=== PATIENT | male | born 1945 | race Caucasian/White ===

== ENCOUNTER 2017-02-17 07:59 | Emergency (ER) | payer OTHER ==
[2017-02-17 08:08] VITALS: BMI 21.9
[2017-02-17 08:12] VITALS: TEMP 97.5
[2017-02-17] MEDS ORDERED: Sodium Chloride 0.9% 1,000 ML IV STA (09:39)
[2017-02-17 09:53] LABS: ADD MANUAL DIFF? NO
[2017-02-17 10:02] LABS: BASO # 0.02 K/mm3 (0.0-2.0); BASO % 0.2 % (0.0-3.0); EOS # 0.4 (0.0-0.7); EOS % 4.3 % (1.5-5.0); GRAN # 6.69 (1.4-6.5); HEMATOCRIT 36.4 % (42.0-52.0); LYMPH # 1.6 (1.2-3.4); LYMPH % 17.2 % (22.0-35.0); MEAN CELL VOLUME 87.9 fL (80.0-105.0); MEAN CORPUSCULAR HGB CONC 34.1 g/dl (31.0-37.0); MEAN PLATELET VOLUME 9.3 fl (7.0-11.0); MONO # 0.6 (0.1-0.6); MONO % 6.3 % (1.0-6.0); PLATELET COUNT 246 10^3/uL (120.0-450.0); RED CELL DISTRIBUTION WIDTH 13.1 % (11.5-14.5); WHITE BLOOD COUNT 9.3 10^3/ul (4.5-11.0)
--- NOTE | 2017-02-17 10:03 | ED PDOC ---
Arrival/HPI <Lobo Arteaga - Last Filed: 02/17/17 10:22> - General Historian: Patient, Family - History of Present Illness Symptom Onset: Sudden Symptom Course: Improving <Paulo,Teetee - Last Filed: 02/17/17 12:21> - General Chief Complaint: Dizziness/Lightheaded Time Seen by Provider: 02/17/17 08:31 - History of Present Illness Narrative History of Present Illness (Text): 02/17/17 09:53 CC: Dizziness/ Headache 71 M with PMHx of HTN, HLD, and BPH presented to [facility] ED with complaints of headache/dizziness. Pt reports the symptoms began this morning at 2 am when he woke up to use the restroom. Pt drank tea at this time and ate a biscuit and returned to bed. Pt then awoke at 6am and again felt dizzy with an associated headache and wanted to use the restroom, however was unable to on account of feeling weak and unsteady to walk to the restroom. He called his family to assist him, and as per family, the patient cannot recall the period of time just after using the restroom. Pt also has complaints of associated headache localized to the posterior of the head, which has since resolved. Pt was recently started on new medication a week ago (02/11/17) for HTN. He denies missing a dose. He denied fever, chills, headache, sob, chest pains, palpitations, abdominal pains, n/v/d/c or urinary symptoms. Pt is moving bowel and bladder regularly. PMHx: HTN, HLD, BPH PSHx: none SHx: lives with family, denied tobacco/etoh/illicit drug abuse FamHx: ?hld Allergies: NKDA Meds: Norvasc 10mg daily, flowmax PMD: none (Teetee Bates) Past Medical History - Cardiac Hx Cardiac Disorders: Yes Hx Hypertension: Yes - Pulmonary Hx Respiratory Disorders: No - Neurological Hx Neurological Disorder: No - HEENT Hx HEENT Disorder: No - Renal Hx Renal Disorder: No - Endocrine/Metabolic Hx Endocrine Disorders: No - Hematological/Oncological Hx Blood Disorders: No - Integumentary Hx Dermatological Disorder: No - Musculoskeletal/Rheumatological Hx Musculoskeletal Disorders: No - Gastrointestinal Hx Gastrointestinal Disorders: No - Genitourinary/Gynecological Hx Genitourinary Disorders: No - Psychiatric Hx Psychophysiologic Disorder: No Hx Substance Use: No <Teetee Bates - Last Filed: 02/17/17 12:21> Family/Social History Family/Social History: No Known Family HX Smoking Status: Never Smoked Hx Alcohol Use: No Hx Substance Use: No <Teetee Bates - Last Filed: 02/17/17 12:21> Allergies/Home Meds <ChandlerLobo - Last Filed: 02/17/17 10:22> <Teetee Bates - Last Filed: 02/17/17 12:21> Allergies/Adverse Reactions: Allergies No Known Allergies Allergy (Verified 02/17/17 08:08) Home Medications: Home Meds Medication Instructions Recorded Confirmed amLODIPine [Norvasc] 10 mg PO DAILY 02/17/17 02/17/17 Review of Systems - Physician Review All systems were reviewed & negative as marked: Yes <Teetee Bates - Last Filed: 02/17/17 12:21> Physical Exam Vital Signs Reviewed: Yes Temperature: Afebrile Blood Pressure: Normal Pulse: Regular Respiratory Rate: Normal Appearance: Positive for: Well-Appearing, Non-Toxic, Comfortable Pain Distress: None Mental Status: Positive for: Alert and Oriented X 3 Finger Stick Blood Glucose: 198 - Systems Exam Head: Present: Atraumatic, Normocephalic Pupils: Present: PERRL Extroacular Muscles: Present: EOMI Conjunctiva: Present: Normal Mouth: Present: Moist Mucous Membranes Neck: Present: Normal Range of Motion Respiratory/Chest: Present: Clear to Auscultation, Good Air Exchange. No: Respiratory Distress, Accessory Muscle Use Cardiovascular: Present: Regular Rate and Rhythm, Normal S1, S2. No: Murmurs Abdomen: Present: Normal Bowel Sounds. No: Tenderness, Distention, Peritoneal Signs Upper Extremity: Present: Normal Inspection. No: Cyanosis, Edema Lower Extremity: Present: Normal Inspection. No: Edema Neurological: Present: GCS=15, CN II-XII Intact, Speech Normal Skin: Present: Warm, Dry, Normal Color. No: Rashes Psychiatric: Present: Alert, Oriented x 3, Normal Insight, Normal Concentration <Teetee Bates - Last Filed: 02/17/17 12:21> Vital Signs Temp Pulse Resp BP Pulse Ox 02/17/17 12:19 64 18 137/77 100 02/17/17 10:47 67 18 137/79 98 02/17/17 10:00 68 15 136/78 100 02/17/17 08:08 97.5 F L 70 15 162/85 H 100 Medical Decision Making <Lobo Arteaga - Last Filed: 02/17/17 10:22> <Teetee Bates - Last Filed: 02/17/17 12:21> ED Course and Treatment: 02/17/17 10:20 Patient seen and evaluated with resident. Agree with HPI, clinical findings, plan and treatment. Patient is a 71 year old male who presents to the emergency department complaining of 2 episodes of lightheadedness. Recently started on Norvasc and Flowmax. Exam unremarkable now and patient currently has no complaints. (Lobo Arteaga) 02/17/17 10:04 71 M with PMHx of HTN and HLD presenting with concerns of syncope vs near syncope vs tia. Pt is without any focal deficits and symptoms are improving. Sx likely 2/2 new anti-HTN medication. - CBC - CMP - Lipid panel - EKG - Orthostatics - Ua, UCx - IVF - CT Head - Reasses and dispo (Teetee Bates) - Lab Interpretations Lab Results: 02/17/17 09:52 02/17/17 09:52 Lab Results 02/17/17 10:35: Urine Color Yellow, Urine Appearance Clear, Urine pH 7.0, Ur Specific [place] 1.010, Urine Protein Negative, Urine Glucose (UA) Negative, Urine Ketones Negative, Urine Blood Negative, Urine Nitrate Negative, Urine Bilirubin Negative, Urine Urobilinogen 0.2, Ur Leukocyte Esterase Negative 02/17/17 09:52: WBC 9.3, RBC 4.14, Hgb 12.4 L, Hct 36.4 L, MCV 87.9, MCH 30.0, MCHC 34.1, RDW 13.1, Plt Count 246, MPV 9.3, Gran % 72.0 H, Lymph % (Auto) 17.2 L, [place] % (Auto) 6.3 H, Eos % (Auto) 4.3, Baso % (Auto) 0.2, Gran # 6.69 H, Lymph # 1.6, [place] # 0.6, Eos # 0.4, Baso # 0.02, ESR 17 H, PT 10.5, INR 0.97, Sodium 136, Potassium 4.1, Chloride 98, Carbon Dioxide 29, Anion Gap 13, BUN 21 , Creatinine 1.0, Est GFR ( Amer) > 60, Est GFR (Non-Af Amer) > 60, Random Glucose 154 H, Calcium 9.8, Total Bilirubin 0.6, AST 29, ALT 30, Alkaline Phosphatase 72, Total Protein 7.3, Albumin 4.2, Globulin 3.1, Albumin/ Globulin Ratio 1.4, Triglycerides 287 H, Cholesterol 230 H, LDL Cholesterol Direct 149 H, HDL Cholesterol 31, TSH 3rd Generation 1.03 - RAD Interpretation Radiology Orders: 02/17/17 09:38 HEAD W/O CONTRAST [CT] Stat - Medication Orders Current Medication Orders: Discontinued Medications Sodium Chloride (Sodium Chloride 0.9%) 1,000 mls @ 999 mls/hr IV .Q1H1M STA Stop: 02/17/17 10:39 Last Admin: 02/17/17 09:53 Dose: 999 MLS/HR eMAR Start Stop Document 02/17/17 09:53 EAR (Rec: 02/17/17 09:[address] 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 / has examined the patient and agrees with the treatment plan. <Lobo Arteaga - Last Filed: 02/17/17 10:22> <Teetee Bates - Last Filed: 02/17/17 12:21> - Scribe Statement Kevin Humphries All medical record entries made by the Scribe were at my direction and personally dictated by me. I have reviewed the chart and agree that the record accurately reflects my personal performance of the history, physical exam, medical decision making, and the department course for this patient. I have also personally directed, reviewed, and agree with the discharge instructions and disposition. (Lobo Arteaga) Disposition/Present on Arrival <Lobo Arteaga - Last Filed: 02/17/17 10:22> - Present on Arrival Any Indicators Present on Arrival: No History of DVT/PE: No History of Uncontrolled Diabetes: No Urinary Catheter: No History of Decub. Ulcer: No History Surgical Site Infection Following: None - Disposition Have Diagnosis and Disposition been Completed?: Yes Disposition Time: 11:30 Patient Plan: Discharge <Teetee Bates - Last Filed: 02/17/17 12:21> - Disposition Diagnosis: Pre-syncope Disposition: HOME/ ROUTINE Patient Problems: Current Active Problems Problem Status Diagnosed Pre-syncope Acute Condition: IMPROVED Additional Instructions: 1. Pt is to FU with PMD of choice or [facility] clinic for followup as soon as possible 2. Pt is to monitor BP daily 3. Pt is welcomed to return to [facility] if develop any acute symptoms Referrals: PCP,NO [Primary Care Provider] - Follow up with primary
[2017-02-17 10:08] LABS: ALB/GLOB RATIO 1.4 (1.1-1.8); ALKALINE PHOSPHATASE 72 U/L (38-133); ALT/SGPT 30 U/L (7-56); AST/SGOT 29 U/L (15-59); BILIRUBIN,TOTAL 0.6 mg/dL (0.2-1.3); BLOOD UREA NITROGEN 21 mg/dL (7-21); CALCIUM 9.8 mg/dL (8.4-10.5); CARBON DIOXIDE 29 mmol/L (21-33); CHLORIDE 98 mmol/L (98-107); CHOLESTEROL 230 mg/dL (130-200); GFR AFRICAN-AMERICAN > 60; GLUCOSE,RANDOM 154 mg/dL (70-110); POTASSIUM 4.1 mmol/L (3.6-5.0); SODIUM 136 mmol/L (132-148); TOTAL PROTEIN 7.3 g/dL (5.8-8.3)
[2017-02-17 10:11] LABS: INR 0.97 (0.93-1.08)
--- NOTE | 2017-02-17 10:33 | CT ---
PROCEDURE: CT HEAD WITHOUT CONTRAST. HISTORY: headache/dizziness COMPARISON: None available. TECHNIQUE: Axial computed tomography images were obtained through the head/brain without intravenous contrast. Radiation dose: Total exam DLP = 766.46 mGy-cm. FINDINGS: HEMORRHAGE: No acute parenchymal, subarachnoid or extra-axial hemorrhage. BRAIN: Suspect minor chronic periventricular white matter ischemic changes. No evidence of large acute infarct. No obvious parenchymal nor extra-axial mass or collection. Minor vascular calcifications are present. VENTRICLES: Mild moderate generalized volume loss. CALVARIUM: Calvarium is intact. PARANASAL SINUSES: No fluid levels seen to suggest acute sinusitis. Minor mucosal thickening right maxillary antrum as well as a few ethmoid air cells. MASTOID AIR CELLS: Unremarkable as visualized. No inflammatory changes. OTHER FINDINGS: Orbits and contents appear grossly unremarkable. IMPRESSION: Normal CT of the Head. No acute intracranial hemorrhage. Suspect minimal chronic periventricular white matter ischemic changes. Mild moderate volume loss.
[2017-02-17 10:48] VITALS: RESP 18
[2017-02-17 10:53] LABS: URINE BILIRUBIN NEGATIVE (NEGATIVE); URINE BLOOD NEGATIVE (NEGATIVE); URINE GLUCOSE (UA) NEGATIVE (NEGATIVE); URINE KETONE NEGATIVE (NEGATIVE); URINE LEUKOCYTE ESTERASE NEGATIVE Leu/uL (NEGATIVE); URINE PROTEIN NEGATIVE mg/dL (<30 mg/dL); URINE UROBILINOGEN 0.2 E.U./dL (<1 E.U./dL)
[2017-02-17 10:55] LABS: URINE APPEARANCE CLEAR (CLEAR); URINE COLOR YELLOW (YELLOW)
[2017-02-17 11:16] LABS: ERYTHROCYTE SEDIMENTATION RATE 17 mm/hr (0.00-15.0)
[2017-02-17 12:31] VITALS: BP 137/79; PULSE 77; O2SAT 98
--- NOTE | 2017-02-17 19:58 | CARD ---
APPROVED REPORT EKG Measurement Heart [id number] <Conclusion> Normal sinus rhythm Nonspecific ST and T wave abnormality Abnormal ECG
== END 2017-02-17 12:33 | disposition home or self-care (01) ==
LOC: ED 07:59
DX: R55 Syncope and collapse (principal)
CPT/HCPCS: 70450; 80053; 80061; 81003; 84443; 85025; 85610; 85651; 87086; 93005; 96360; 99285; J7040